=== PATIENT | female | born 2005 | race Caucasian/White ===

== ENCOUNTER 2025-05-29 14:53 | Outpatient (CLI) | payer BC, OTHER ==
--- NOTE | 2025-05-29 16:53 | RADIOLOGY REPORT ---
EXAM: MR MRI LOWER EXTREMITY RIGHT HISTORY: PAIN IN RIGHT KNEE;COMPLEX TEAR OF LAT MENSC, CURRENT INJURY,RIGHT KNEE COMPARISON: None TECHNIQUE: Multiplanar, multisequence imaging of the right knee was performed without contrast FINDINGS: MEDIAL COMPARTMENT: Intact medial meniscus. No focal chondrosis or subchondral edema. LATERAL COMPARTMENT: Intact lateral meniscus. No focal chondrosis or subchondral edema. PATELLOFEMORAL COMPARTMENT: Question trace amount of edema of the superolateral aspect of Hoffa's fat pad. Correlate with clinical exam to exclude patellar maltracking (patellar tendon-lateral femoral condylar friction syndrome). CRUCIATE LIGAMENTS: Intact anterior and posterior cruciate ligaments. MEDIAL SUPPORTING STRUCTURES: Intact medial collateral ligament. LATERAL SUPPORTING STRUCTURES: Intact iliotibial band, lateral capsular ligament, fibular collateral ligament, popliteus, and biceps femoris tendons EXTENSOR MECHANISM: Intact JOINT SPACE/FLUID: No joint effusion. BONES: No acute fracture, osseous contusion, or aggressive focal osseous lesion MUSCLES: Normal in signal intensity and morphology NEUROVASCULAR: Unremarkable OTHER: None IMPRESSION: 1. Question trace amount of edema of the superolateral aspect of Hoffas fat pad. 2. Correlate with clinical exam to exclude patellar maltracking (patellar tendon-lateral femoral condylar friction syndrome). 3. No meniscal or cruciate ligamentous injury.
== END 2025-05-29 23:59 | disposition home or self-care (01) ==
LOC: MRI02 14:53
PROVIDERS: ATTEND Family Medicine Sports Medicine
DX: S83.271A Complex tear of lateral meniscus, current injury, right knee, initial encounter (principal); M25.561 Pain in right knee; M77.9 Enthesopathy, unspecified; X58.XXXA Exposure to other specified factors, initial encounter; Y93.89 Activity, other specified; Y92.89 Other specified places as the place of occurrence of the external cause; Y99.8 Other external cause status
CPT/HCPCS: 73721